=== PATIENT | female | born 1995 ===

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

== ENCOUNTER 2017-01-20 07:09 | Emergency (ER) | payer OTHER ==
[2017-01-20 07:25] VITALS: BP 138/80
--- NOTE | 2017-01-20 07:51 | UC ---
Abdominal Pain Female HPI - HPI Summary HPI Summary: ABDOMINAL PAIN X 1 DAY PAIN IS SEVER, LLQ, RADIATING TO HER LEFT GROIN , + NAUSEA , NO FEVER, NO CHILLS , NO FLANK PAIN AND NO DYSURI HX OF KIDNEY STONE - History of Current Complaint Chief Complaint: UCAbdominalPain Stated Complaint: LOWER ABDOMINAL PAIN/COUGH Time Seen by Provider: 01/20/17 07:24 Hx Obtained From: Patient Hx Last Menstrual Period: 01/14/17 ?: No Onset/Duration: Sudden Onset, Lasting Days - 1, Still Present Timing: Constant Severity Initially: Moderate Severity Currently: Severe Location: Discrete At: RLQ Radiates: Yes Radiates to: Inguinal - LEFT SIDE Character: Colicy, Sharp Aggravating Factor(s): Nothing Alleviating Factor(s): Nothing Associated Signs and Symptoms: Positive: Decreased Appetite, Nausea. Negative: Diaphoresis, Fever, Cough, Chest Pain, Dizzy, Back Pain, Constipation, Blood in Stool, Urinary Symptoms, Vaginal Bleeding, Vaginal Discharge Allergies/Adverse Reactions: Allergies Allergy/AdvReac Type Severity Reaction Status Date / Time No Known Allergies Allergy Verified 01/20/17 07:15 Home Medications: Home Medications diPHENhydraMINE PO* [Benadryl PO 25 MG TAB*] 50 mg PO Q6H PRN 01/20/17 [History Confirmed 01/20/17] PMH/Surg Hx/FS Hx/Imm Hx Respiratory History Of: Reports: Asthma GI/ History Of: Reports: Kidney Stones - Surgical History Surgical History: None - Family History Known Family History: Negative: Diabetes - Social History Alcohol Use: Rare Substance Use Type: None Smoking Status (MU): Never Smoked Tobacco Review of Systems Constitutional: Negative Skin: Negative Eyes: Negative ENT: Negative Respiratory: Negative Gastrointestinal: Abdominal Pain Genitourinary: Negative All Other Systems Reviewed And Are Negative: Yes Physical Exam Triage Information Reviewed: Yes Appearance: Well-Appearing, Well-Nourished, Pain Distress Vital Signs: Initial Vital Signs Temp 97.4 F 01/20/17 07:17 Pulse 81 01/20/17 07:17 Resp 20 01/20/17 07:17 BP 138/80 01/20/17 07:17 Pulse Ox 100 01/20/17 07:17 Vital Signs Reviewed: Yes Eyes: Positive: Conjunctiva Clear ENT: Positive: Normal ENT inspection, Hearing grossly normal, Pharynx normal Neck: Positive: Supple, Nontender, No Lymphadenopathy Respiratory: Positive: Chest non-tender, Lungs clear, Normal breath sounds Cardiovascular: Positive: RRR, No Murmur, Pulses Normal Abdomen Description: Positive: Soft, Other: - LLQ TENDERNESS. Negative: CVA Tenderness (R), CVA Tenderness (L), Distended, Guarding Bowel Sounds: Positive: Present Musculoskeletal Exam: Normal Musculoskeletal: Positive: Strength Intact Skin Exam: Normal Abd Pain Female Course/Dx - Differential Dx/Diagnosis Provider Diagnoses: RENAL COLIC Discharge - Discharge Plan Condition: Stable Disposition: HOME Prescriptions: Hydrocodone-Acetaminophen [Hydrocodone/Acetaminophen 5-325 mg] 1 tab PO Q6H PRN #15 tab MDD 4 TABS PRN Reason: Pain Ondansetron [Zofran 8 MG Odt] 8 mg PO Q8H PRN #10 tab PRN Reason: Nausea/Vomiting Sulfamethox/Trimethoprim DS* [Bactrim DS 800/160 TAB*] 1 tab PO BID #20 tab Patient Education Materials: Renal Colic (ED) Forms: *School Release Referrals: Non Staff,Doctor [Primary Care Provider] - 5 Days
== END 2017-01-20 08:02 | disposition home or self-care (01) ==
LOC: UCCORT 07:09
DX: N23 Unspecified renal colic (principal); Z87.442 Personal history of urinary calculi; J45.909 Unspecified asthma, uncomplicated
CPT/HCPCS: 81003; 87086; 99212; G0463

== ENCOUNTER 2017-11-26 19:15 | Emergency (ER) | payer OTHER ==
[2017-11-26 19:29] VITALS: BP 148/90
--- NOTE | 2017-11-26 19:39 | UC ---
Throat Pain/[place] HPI - HPI Summary HPI Summary: Sinus pain and pressure worsening over the past two week-now is making her teeth hurt so bad she cannot eat - History of Current Complaint Chief Complaint: UCGeneralIllness Stated Complaint: SINUS PRESSURE Time Seen by Provider: 11/26/17 19:38 Hx Obtained From: Patient Hx Last Menstrual Period: 01/14/17 ?: No Onset/Duration: Gradual Onset, Lasting Weeks - 2, Still Present Severity: Moderate Pain Intensity: 2 Cough: None Associated Signs & Symptoms: Positive: Negative - Allergies/Home Medications Allergies/Adverse Reactions: Allergies Allergy/AdvReac Type Severity Reaction Status Date / Time No Known Allergies Allergy Verified 11/26/17 19:29 Home Medications: Home Medications Cetirizine* [ZyrTEC 10 MG TAB*] 10 mg PO DAILY 11/26/17 [History Confirmed 11/26] Ibuprofen/Pseudoephedrine HCl [Advil Cold & Sinus [place]] 1 tab PO ONCE [History Confirmed 11/26/17] PMH/Surg Hx/FS Hx/Imm Hx Previously Healthy: Yes - Surgical History Surgical History: None - Family History Known Family History: Positive: None Negative: Diabetes - Social History Occupation: Student Lives: Dormitory/Roommates Alcohol Use: Rare Substance Use Type: None Smoking Status (MU): Never Smoked Tobacco Review of Systems Constitutional: Negative Skin: Negative Eyes: Negative ENT: Dental Pain, Ear Ache, Nasal Discharge, Sinus Congestion, Sinus Pain/ Tenderness Respiratory: Negative Cardiovascular: Negative Gastrointestinal: Negative Genitourinary: Negative Motor: Negative Neurovascular: Negative Musculoskeletal: Negative Neurological: Negative Psychological: Negative Is Patient Immunocompromised?: No All Other Systems Reviewed And Are Negative: Yes Physical Exam Triage Information Reviewed: Yes Appearance: Well-Appearing, No Pain Distress, Well-Nourished Vital Signs: Initial Vital Signs Temp 96.8 F 11/26/17 19:26 Pulse 112 11/26/17 19:26 Resp 14 11/26/17 19:26 BP 148/90 11/26/17 19:26 Pulse Ox 100 11/26/17 19:26 Vital Signs Reviewed: Yes Eye Exam: Normal Eyes: Positive: Conjunctiva Clear ENT Exam: Normal ENT: Positive: Pharynx normal, Nasal congestion, Nasal drainage, TMs normal, Dental tenderness, Sinus tenderness, Uvula midline. Negative: Tonsillar swelling, Tonsillar exudate, Trismus, Muffled voice, Hoarse voice Dental Exam: Normal Neck exam: Normal Neck: Positive: Supple, Nontender, No Lymphadenopathy Respiratory Exam: Normal Respiratory: Positive: Chest non-tender, Lungs clear, Normal breath sounds, No respiratory distress, No accessory muscle use Cardiovascular Exam: Normal Cardiovascular: Positive: RRR, No Murmur, Pulses Normal, Brisk Capillary Refill Musculoskeletal Exam: Normal Musculoskeletal: Positive: Strength Intact, ROM Intact, No Edema Neurological Exam: Normal Neurological: Positive: Alert, Muscle Tone Normal Psychological Exam: Normal Skin Exam: Normal Throat Pain/Nasal Course/Dx - Course Assessment/Plan: increase fluids, augmentin, flonase, mucinex d, tylenol, ibuprofen for pain follow at [facility] as needed - Differential Dx/Diagnosis Provider Diagnoses: Acute rhinnosinusitis Discharge - Discharge Plan Condition: Stable Disposition: HOME Prescriptions: Amoxicillin/Clavulanate TAB* [Augmentin TAB 875*] 875 mg PO BID #20 tab Fluticasone NASAL SPRAY 50MCG* [Flonase NASAL SPRAY 50MCG*] 2 spray BOTH NARES DAILY #1 btl Patient Education Materials: Sinusitis (ED), How to Use Nasal [place] (ED) Referrals: [facility] [Outside] - If Needed
== END 2017-11-26 19:53 | disposition home or self-care (01) ==
LOC: UCCORT 19:15
DX: J01.90 Acute sinusitis, unspecified (principal)
CPT/HCPCS: 99212; G0463